=== PATIENT | male | born 1965 | race Caucasian/White ===

== ENCOUNTER 2023-04-16 23:07 | Emergency (ER) | payer BC ==
[~2023-04-16] VITALS: Ht 162.6 cm; Wt 64.4 kg
[2023-04-16 23:35] VITALS: BP 124/77; PULSE 68; RESP 17; TEMP 97.8; O2SAT 97
--- NOTE | 2023-04-16 23:38 | NUR ---
TO LOBBY A/W BED AMBULATORY
[2023-04-17] MEDS ORDERED: CEPH-588 PO (01:38)
[2023-04-17 01:41] VITALS: BP 124/77; PULSE 68; RESP 17; TEMP 97.8; O2SAT 97
== END 2023-04-17 01:41 | disposition home or self-care (01) ==
LOC: MED 23:07
DX: M79.675 Pain in left toe(s) (principal); E11.9 Type 2 diabetes mellitus without complications; Z79.899 Other long term (current) drug therapy
CPT/HCPCS: 73660; 99283; Q0092

== ENCOUNTER 2024-04-07 17:51 | Emergency (ER) | payer BC ==
[~2024-04-07] VITALS: Ht 167.6 cm; Wt 57.6 kg
[~2024-04-07 17:51] MED LIST: CEPH-588 PO
[2024-04-07 17:57] VITALS: BP 128/71; PULSE 82; RESP 18; TEMP 97.4; O2SAT 97
[2024-04-07] MEDS: NACL 0.9% 1,000 ML IV SCH (18:29)
[2024-04-07 18:32] LABS: BASOPHILS % (AUTO) 0.4 % (0.0-2.0); EOSINOPHILS % (AUTO) 0.8 % (0.0-4.0); HEMOGLOBIN 13.7 g/dL (12.0-18.0); LYMPHOCYTES # (AUTO) 1.1 K/uL (2.0-11.5); LYMPHOCYTES % (AUTO) 23.2 % (20.5-51.1); MEAN CORPUSCULAR HEMOGLOBIN 33 pg (27-31); MEAN CORPUSCULAR HGB CONC 34 g/dL (33-37); MEAN CORPUSCULAR VOLUME 97.1 fL (80-94); MONOCYTES # (AUTO) 0.4 K/uL (0.8-1.0); MONOCYTES % (AUTO) 7.7 % (1.7-9.3); NEUTROPHILS # (AUTO) 3.3 K/uL (1.8-7.7); NEUTROPHILS % (AUTO) 67.9 % (42.2-75.2); PLATELET COUNT (AUTO) 206 K/uL (140-450); RED BLOOD CELL COUNT(AUTO) 4.12 MIL/uL (4.20-6.10); RED CELL DISTRIBUTION WIDTH 13.5 % (11.6-13.7); WHITE BLOOD COUNT (AUTO) 4.8 K/uL (4.8-10.8)
[2024-04-07] MEDS: INSULIN REGULAR, HUMAN 100 UNIT/ML VIAL SUBQ ONE (18:40)
[2024-04-07] MEDS: LIDOCAINE MPF 1% 10 MG/ML VIAL INJ ONE (18:41)
[2024-04-07] MEDS: BACITRACIN OINT 500 UNITS/GM PKT TP ONE (18:42)
[2024-04-07 18:45] LABS: ANION GAP 12.1 (8-16); CALCIUM 8.3 mg/dL (8.5-10.1); CARBON DIOXIDE 29.4 mmol/L (21-32); POTASSIUM 4.5 mmol/L (3.5-5.1)
[2024-04-07 18:47] LABS: ALBUMIN 3.3 g/dL (3.4-5.0); BILIRUBIN,DIRECT 0.2 mg/dL (0.0-0.3); TOTAL BILIRUBIN 0.7 mg/dL (0.0-1.0); TOTAL PROTEIN, SERUM 6.4 g/dL (6.4-8.2)
[2024-04-07] MEDS ORDERED: CEPH-588 PO (19:24)
[2024-04-07] MEDS ORDERED: BACTO TP (19:24)
[2024-04-07] MEDS: NACL 0.9% 1,000 ML IV ONE (19:31)
[2024-04-07 20:03] VITALS: BP 126/71; PULSE 82; RESP 18; TEMP 97.4; O2SAT 97
== END 2024-04-07 20:03 | disposition home or self-care (01) ==
LOC: MED 17:51
DX: S91.111A Laceration without foreign body of right great toe without damage to nail, initial encounter (principal); E11.65 Type 2 diabetes mellitus with hyperglycemia; Z79.2 Long term (current) use of antibiotics; Z79.84 Long term (current) use of oral hypoglycemic drugs; Z79.4 Long term (current) use of insulin; X58.XXXA Exposure to other specified factors, initial encounter; Y93.89 Activity, other specified; Y92.89 Other specified places as the place of occurrence of the external cause; Y99.8 Other external cause status
CPT/HCPCS: 12002; 36415; 80048; 80076; 82948; 85025; 96360; 96361; 96372; 99283; J1815; J2001; J7030

== ENCOUNTER 2024-04-12 16:08 | Emergency (ER) | payer BC ==
[~2024-04-12] VITALS: Ht 167.6 cm; Wt 62.6 kg
[~2024-04-12 16:08] MED LIST changes: +BACTO TP
[2024-04-12 16:58] VITALS: BP 135/75; PULSE 86; RESP 22; TEMP 97.9; O2SAT 99
[2024-04-12] MEDS ORDERED: SULF-59 PO (18:41)
[2024-04-12 19:25] VITALS: BP 116/75; PULSE 76; RESP 18; O2SAT 99
== END 2024-04-12 19:25 | disposition home or self-care (01) ==
LOC: MED 16:08
DX: T25.131A Burn of first degree of right toe(s) (nail), initial encounter (principal); S91.101A Unspecified open wound of right great toe without damage to nail, initial encounter; L08.89 Other specified local infections of the skin and subcutaneous tissue; L03.031 Cellulitis of right toe; E11.9 Type 2 diabetes mellitus without complications; Z79.899 Other long term (current) drug therapy; X58.XXXA Exposure to other specified factors, initial encounter; Y92.89 Other specified places as the place of occurrence of the external cause; Y93.89 Activity, other specified; Y99.8 Other external cause status
CPT/HCPCS: 82948; 99283